=== PATIENT | male | born 1970 | race Caucasian/White ===

== ENCOUNTER 2018-04-29 15:14 | Emergency (ER) | payer MEDICAID ==
[~2018-04-29] VITALS: Ht 182.9 cm; Wt 90.0 kg
[2018-04-29 17:19] LABS: CLARITY URINE CLEAR (CLEAR); COLOR URINE DARK YELLOW (YELLOW); KETONES URINE NEGATIVE (NEGATIVE); LEUKOCYTE ESTERASE URINE NEGATIVE (NEGATIVE); NITRITE URINE NEGATIVE (NEGATIVE); OCCULT BLOOD URINE 1+ (NEGATIVE); PROTEIN URINE TRACE (NEGATIVE); SPECIFIC GRAVITY URINE 1.042 (1.005-1.030)
[2018-04-29 17:30] LABS: *AMPHETAMINES SCREEN URINE PRESUMTIVE POSITIVE (NEGATIVE); *BARBITURATES SCREEN URINE NEGATIVE (NEGATIVE); *BENZODIAZEPINES SCREEN URINE NEGATIVE (NEGATIVE); *COCAINE SCREEN URINE NEGATIVE (NEGATIVE); METHADONE URINE SCREEN NEGATIVE (NEGATIVE); OPIATES URINE SCREEN NEGATIVE (NEGATIVE); PHENCYCLIDINE URINE SCREEN NEGATIVE (NEGATIVE)
[2018-04-29 17:31] LABS: CANNABINOID URINE SCREEN NEGATIVE (NEGATIVE)
[2018-04-29 17:39] LABS: CHLORIDE 102 mEq/L (98-107); INR 0.9; PROTHROMBIN TIME 9.5 sec (9.1-11.1)
[2018-04-29 17:41] LABS: BASOPHILS % 0.6 % (0.0-2.0); EOSINOPHILS % 1.9 % (0.0-5.0); HEMATOCRIT. 44.6 % (42.0-52.0); HEMOGLOBIN. 15.7 g/dL (14.0-18.0); MEAN CORPUSCULAR HEMOGLOBIN 32.4 pg (28.0-32.0); MEAN CORPUSCULAR VOLUME 92.1 fL (80.0-94.0); MEAN PLATELET VOLUME 9.3 fl (7.4-10.4); MONOCYTES % 10.6 % (2.0-8.0); NEUTROPHILS % 58.9 % (40.0-76.0); PLATELET 245 x1000/uL (130-400); RED BLOOD CELL COUNT 4.84 mill/uL (4.7-6.1); RED CELL DISTRIBUTION WIDTH 11.9 % (11.6-14.6)
[2018-04-29 17:43] LABS: ETHANOL BLOOD < 10 mg/dL
[2018-04-29 18:50] VITALS: BP 118/78
== END 2018-04-29 20:54 | disposition home or self-care (01) ==
LOC: ER 15:19
DX: F19.10 Other psychoactive substance abuse, uncomplicated (principal)
CPT/HCPCS: 36415; 80053; 80305; 80307; 80329; 81003; 85025; 85610; 99284; G0482

== ENCOUNTER 2018-08-10 10:31 | Emergency (ER) | payer MEDICAID ==
[~2018-08-10] VITALS: Ht 182.9 cm; Wt 86.0 kg
[2018-08-10] MEDS ORDERED: SODIUM CHLORIDE 0.9% 1,000 ML IV ONE ×2 (11:00→16:24)
[2018-08-10] MEDS ORDERED: LORAZEPAM 2MG/ML CPJ IV STA (11:00)
[2018-08-10 11:35] LABS: BASOPHILS % 0.3 % (0.0-2.0); EOSINOPHILS % 0.8 % (0.0-5.0); HEMATOCRIT. 46.1 % (42.0-52.0); HEMOGLOBIN. 16.5 g/dL (14.0-18.0); LYMPHOCYTES % 14.9 % (20.0-50.0); MEAN CORPUSCULAR VOLUME 92.2 fL (80.0-94.0); MONOCYTES % 8.7 % (2.0-8.0); NEUTROPHILS % 75.3 % (40.0-76.0); PLATELET 178 x1000/uL (130-400); RED BLOOD CELL COUNT 4.99 mill/uL (4.7-6.1); RED CELL DISTRIBUTION WIDTH 12.1 % (11.6-14.6)
[2018-08-10 11:38] LABS: CHLORIDE 105 mEq/L (98-107)
[2018-08-10 11:44] LABS: ETHANOL BLOOD < 10 mg/dL
[2018-08-10] MEDS ORDERED: POTASSIUM CHLORIDE 20MEQ TABLET SR PO ONE (12:00)
[2018-08-10 12:11] LABS: CLARITY URINE CLEAR (CLEAR); COLOR URINE DARK YELLOW (YELLOW); KETONES URINE 3+ (NEGATIVE); LEUKOCYTE ESTERASE URINE NEGATIVE (NEGATIVE); NITRITE URINE NEGATIVE (NEGATIVE); OCCULT BLOOD URINE NEGATIVE (NEGATIVE); PH URINE 5.5 (4.5-8.0); PROTEIN URINE TRACE (NEGATIVE); SPECIFIC GRAVITY URINE 1.039 (1.005-1.030)
[2018-08-10 12:26] LABS: *AMPHETAMINES SCREEN URINE PRESUMTIVE POSITIVE (NEGATIVE); *BARBITURATES SCREEN URINE NEGATIVE (NEGATIVE)
[2018-08-10 12:27] LABS: *BENZODIAZEPINES SCREEN URINE NEGATIVE (NEGATIVE); *COCAINE SCREEN URINE NEGATIVE (NEGATIVE); METHADONE URINE SCREEN NEGATIVE (NEGATIVE); OPIATES URINE SCREEN NEGATIVE (NEGATIVE); PHENCYCLIDINE URINE SCREEN NEGATIVE (NEGATIVE)
[2018-08-10 12:28] LABS: CANNABINOID URINE SCREEN NEGATIVE (NEGATIVE)
[2018-08-10 17:36] VITALS: BP 136/66
== END 2018-08-10 17:40 | disposition home or self-care (01) ==
LOC: ER 10:36
DX: F15.188 Other stimulant abuse with other stimulant-induced disorder (principal); F16.10 Hallucinogen abuse, uncomplicated; E86.0 Dehydration; E87.6 Hypokalemia
CPT/HCPCS: 36415; 80053; 80305; 81003; 85025; 96361; 96374; 99283; G0482; J2060; J7030

== ENCOUNTER 2019-01-09 18:20 | Emergency (ER) | payer MEDICAID ==
[~2019-01-09] VITALS: Ht 177.8 cm; Wt 88.0 kg
[2019-01-09 18:49] VITALS: BP 142/76
== END 2019-01-09 21:15 | disposition left against medical advice (07) ==
LOC: ER 18:20
DX: Z53.21 Procedure and treatment not carried out due to patient leaving prior to being seen by health care provider (principal)

== ENCOUNTER 2019-01-10 01:56 | Emergency (ER) | payer MEDICAID ==
[~2019-01-10] VITALS: Ht 177.8 cm; Wt 86.0 kg
[2019-01-10 01:58] VITALS: BP 142/86
== END 2019-01-10 04:05 | disposition left against medical advice (07) ==
LOC: ER 01:56
DX: F99 Mental disorder, not otherwise specified (principal); Z53.21 Procedure and treatment not carried out due to patient leaving prior to being seen by health care provider

== ENCOUNTER 2020-06-10 17:07 | Emergency (ER) | payer MEDICAID ==
[~2020-06-10] VITALS: Ht 182.9 cm; Wt 93.0 kg
[2020-06-10] MEDS ORDERED: FAMOTIDINE 20MG TABLET PO ONE (18:15)
[2020-06-10] MEDS ORDERED: DIPHENHYDRAMINE 50MG CAPSULE PO ONE (18:15)
[2020-06-10] MEDS ORDERED: PREDNISONE 20MG TABLET PO ONE (18:15)
[2020-06-10 18:46] VITALS: BP 147/86
== END 2020-06-10 19:25 | disposition home or self-care (01) ==
LOC: ER 17:07
DX: T78.40XA Allergy, unspecified, initial encounter (principal); T61.11XA Scombroid fish poisoning, accidental (unintentional), initial encounter; Y92.9 Unspecified place or not applicable
CPT/HCPCS: 99284; J7512; Q0163

== ENCOUNTER 2020-08-26 17:24 | Emergency (ER) | payer MEDICAID ==
[~2020-08-26] VITALS: Ht 177.8 cm; Wt 89.0 kg
[2020-08-26 17:25] VITALS: BP 123/76
[2020-08-26] MEDS ORDERED: LORAZEPAM 2MG/ML CPJ IM STA (19:05)
== END 2020-08-26 19:01 | disposition left against medical advice (07) ==
LOC: ER 17:24
DX: F31.9 Bipolar disorder, unspecified (principal); F20.9 Schizophrenia, unspecified; F12.10 Cannabis abuse, uncomplicated; F15.10 Other stimulant abuse, uncomplicated; F23 Brief psychotic disorder; F41.9 Anxiety disorder, unspecified; Z53.21 Procedure and treatment not carried out due to patient leaving prior to being seen by health care provider
CPT/HCPCS: 93005